=== PATIENT | female | born 1960 | race Caucasian/White ===

== ENCOUNTER 2016-11-26 10:16 | Day surgery (SDC) | payer OTHER ==
[2016-11-26] VITALS (14 sets, daily range): BP systolic 102–148; BP diastolic 64–86; PULSE 66–85; RESP 8–18; O2SAT 93–97
[~2016-11-26] VITALS: Ht 162.6 cm; Wt 58.3 kg
--- NOTE | 2016-11-26 09:58 | PCM.HPANE ---
Patient Data Surgeon Admitting Provider: Attending Provider:Rashad Mejia MD Primary Care Physician:Liliya De La Cruz MD Other Provider:Deena Garciaingham Anesthesia Reason for Visit Cystocele,Uterovag Prolapse,Rectocele,Incontinence Ht/WT & BMI Height (Feet): 5 Height (Inches): 4 Weight (Kilograms): 58.059 Body Mass Index 21.00 Allergies Coded Allergies: Penicillins (Verified Allergy, Severe, swelling mouth difficulty breathing , 11/21/16) Past Anesthesia History Anesthesia History: Denies:: Abnormal Airway, Anesthesia Reactions, Difficult Intubation, Fam Anesthesia Reaction, Fam Malignant Hypertherm, Malignant Hyperthermia Diabetes History Hx Diabetes?: No MRSA MRSA: No Medications Reported Medications Oxybutynin Chloride ER 10 Mg Tab.er.2410 Mg PO DAILY Ref 0 11/21/16 Atorvastatin (Lipitor)40 Mg Shiklw42 Mg PO DAILY Ref 0 11/21/16 Folic Acid 1 Mg Tablet1 Mg PO DAILY 30 Days 02/06/15 Bumetanide 1 Mg Tablet0.5 Mg PO BID 30 Days Ref 0 02/06/15 Pentoxifylline 400 Mg Tablet.er400 Mg PO BID 30 Days 02/06/15 Lactulose 10 Gm/15 Ml Iionptbn37 Gm PO 02/06/[address] 40 Mg Tablet.dr40 Mg PO DAILY 30 Days Ref 0 02/06/15 Potassium Chloride ER 20 Meq Tablet.er20 Meq PO DAILY 30 Days Ref 0 TAKE WITH FOOD 02/06/15 Spironolactone 100 Mg Kgyxjn062 Mg PO DAILY #30 TABLET Ref 0 02/06/15 Discontinued Reported Medications Ascorbic Acid (Vitamin C)500 Mg Capsule.er500 Mg PO 02/06/15 Thiamine HCl (Vitamin B-1)100 Mg Iqkglm048 Mg PO 02/06/15 Ferrous Sulfate (Iron)325 Mg Capsule.er325 Mg PO 02/06/15 History History of ENT Problems?: No HEENT History: Denies:: Abnormal Airway Difficult Intubation Dysphagia Hearing Problem Hx of Heart Problems?: Yes Cardiovascular History: Positive for:: Irregular Heartbeat (HX SVT (NO LONGER ON ATENOLOL)-CONVERTS W/ IV DILTIAZEM) Denies:: AICD Atrial Fibrillation Chest Pain Heart Murmur (ECHO 10/2015 EF 55-60%) Hypertension (HYPERLIPIDEMIA) Pacemaker Valvular Heart Disease Hx of Respiratory Problem?: Yes Respiratory History: Denies:: Asthma COPD Cough Hemoptysis Pneumonia (HX BRONCHIOLITIS) Tuberculosis Use of C-PAP Machine Hx Neurologic Problems?: No Neurological History: Denies:: CVA Dementia Hx of GI Problems?: Yes Gastrointestinal History: Positive for:: Cirrhosis (ALCOHOLIC CIRROHOSIS - STABLE) Gastroesphageal Reflux Hiatal Hernia Denies:: Diverticulitis (DIVERTICULOSIS) Rectal Bleeding (HX COLON POLYPS) Hx of Problems?: Yes Female Hx: Denies:: Currently (S/P BTL) Skin History: Denies:: History Skin Disorders? Pressure Ulcers Hx Musculoskeletal Problems?: No Musculoskeletal History: Denies:: Joint Replacement Hx of Psycho/Social Problems?: Yes Psycho Social History: Positive for:: Anxiety Hx Depression Hx Surgeries?: Yes (BTL) Hx Any Other Health Problems?: Yes Other History: Denies:: Cancer Endocrine Disease Hospitalization Thyroid Disease History Blood Transfusions: Denies:: Blood Transfusions Hx Diabetes: No Hx Alcohol Use: No (QUIT 2+ YRS AGO)Hx Substance Use: Yes Smoking Status: Current Every Day Smoker Heavy Tobacco Smoker Approx How Many Cigarettes/day: 1 PACK EVERY 3 DAYS-TRYING TO "CUT DOWN" Stop/Bang S-Snoring: Do You Snore Loudly: No T-Tired: feel tired, fatigued: No O-Obsered: Observed not breath: No P-Blood Pressure: treated: No B- Body Mass Index > 35 kg/m2: No A- Age over 50: Yes N- Neck Large Circumference: No G- Gender Male: No JAY Total Score: 1 JAY Risk Assessment: Low Risk, <3 Yes Risk Assessment Category Category 1A: Patient has history of documented sleep apnea, and HAS NOT received any narcotic, sedative or anesthesia administration during this stay. Category 1B: Patient has history of documented sleep apnea, and HAS received any narcotic , sedative or anesthesia administration during this stay Category 2: Patient has SUSPECTED Obstructive Sleep Apnea, and HAS received any narcotic , sedative or anesthesia administration during this stay. Category 3: Patient has SUSPECTED Obstructive Sleep Apnea and HAS NOT received narcotic, sedative or anesthesia administration during this stay. Category 4: Outpatient in Procedural Areas with known sleep apnea or who screen positive for High Risk via the STOP/BANG questionnaire. Exam Exam General Appearance: Alert HEENT/AIRWAY: MP 1 Lungs: Clear to Auscultation Heart: Exam Unremarkable Plan Impression Patient chart reviewed, patient interviewed and anesthestic plan with risks, benefits, and alternatives discussed, and informed consent obtained. ASA Physical Status: ASA1 Normal Healthy Anesthetic Plan: GA, SAB Bene/Risks/Altern/Consents: Yes HP Complete Prior to Induction: Yes Will De Los Santos MD Nov 26, 2016 09:58
[~2016-11-26 10:16] MED LIST: BUME1TAB4 PO; Clindamycin Inj 600 MG in IV Premix 1 EACH IV ONE; DEXTROSE 5% IV ONE; DEXTROSE 50% IV ONE; FOLI1TAB18 PO; GENTAMICIN IV ONE; LACT10SO27 PO; LIP40 PO; Lactated Ringer's 1,000 ML IV SCH; OXYB10TA PO; PANT40TA3 PO; PENT400T PO; POTA-62 PO; Phenazopyridine 97.5 mg Tablet PO ONE; SPIR100T3 PO; WATER IV ONE
[2016-11-26] MEDS ORDERED: EPHEDrine/NS 5 mg/mL 5 mL Syringe ONE (10:17)
[2016-11-26] MEDS ORDERED: fentaNYL-PF 50 mCg/mL 2 mL Inj ONE (10:17)
[2016-11-26] MEDS ORDERED: Ondansetron 2 mg/mL 2 mL Inj ONE (10:17)
[2016-11-26] MEDS ORDERED: Propofol 10,000 mCg/mL 20 mL Inj ONE (10:17)
[2016-11-26] MEDS ORDERED: Morphine PF 1 mg/mL 10 mL Inj ONE (10:17)
[2016-11-26] MEDS ORDERED: Dexamethasone 4 mg/mL Inj ONE (10:17)
[2016-11-26] MEDS ORDERED: Phenazopyridine 97.5 mg Tablet ONE (10:25)
[2016-11-26] MEDS ORDERED: Dexamethasone 4 mg/mL Inj IVPUSH PRN (13:20)
[2016-11-26] MEDS ORDERED: Lactated Ringer's 500 ML IV PRN (13:20)
[2016-11-26] MEDS ORDERED: Labetalol 5 mg/mL 4 mL Inj IV PRN (13:20)
[2016-11-26] MEDS ORDERED: Ondansetron 2 mg/mL 2 mL Inj IVPUSH PRN (13:20)
[2016-11-26] MEDS ORDERED: MetoCLOpramide 5 mg/mL 2 mL Inj IVPUSH PRN ×2 (13:20→16:55)
[2016-11-26] MEDS ORDERED: EPHEDrine Sulfate 50 mg/mL Inj IVPUSH PRN (13:20)
[2016-11-26] MEDS ORDERED: HYDROmorphone 1 mg/mL Inj IVPUSH PRN (13:20)
[2016-11-26] MEDS ORDERED: Atropine 0.4 mg/mL Inj IVPUSH PRN (13:20)
[2016-11-26] MEDS ORDERED: Lactated Ringer's 1,000 ML IV SCH (13:20)
[2016-11-26] MEDS ORDERED: Phenylephrine 10,000 mCg/mL Inj IVPUSH PRN (13:20)
[2016-11-26] MEDS ORDERED: Lidocaine 1%-Epi 1:100,000 20 mL Inj INFILTRATE ONE ×2 (13:35→14:24)
[2016-11-26] MEDS ORDERED: Sodium Chloride LOK Flush 10 mL Syringe XX ONE ×2 (13:35→14:24)
[2016-11-26] MEDS ORDERED: Gentamicin 40 mg/mL 2 mL Inj IRRIGATION ONE ×2 (13:37→16:09)
[2016-11-26] MEDS ORDERED: Lactated Ringer's 1,000 ML IV ONE (16:23)
--- NOTE | 2016-11-26 16:54 | PCM.ANEP1 ---
Post Anesthesia Phase 1 PACU Phase 1 Assessment Vital Signs Vital Signs Date Time Temp Pulse Resp B/P Pulse Ox O2 Delivery O2 Flow Rate FiO2 11/26/16 10:37 35.5 85 17 148/86 97 Room Air Anesthetic Administered: GA Level of Alertness: Awake, talking LU's with Equal Strength: Yes Pain: No Oxygen Delivery: Room Air Lungs: Clear to Auscultation Dermatome Level: Full Sensation Summary TEMP 36.3 121/74 SAT 94 RR12 HR101 Will De Los Santos MD Nov 26, 2016 16:54
--- NOTE | 2016-11-26 16:54 | PCM.ANEP2 ---
Post Anesthesia Evaluation ASA/CMS Post Anesthesia VS in Patient's Normal Range?: Yes Resp Stable; Airway Patent?: Yes CV Function & Hydration Stable: Yes Mental Status Recovered?: Yes Pain control Satisfactory?: Yes N/V Control Satisfactory?: Yes Will De Los Santos MD Nov 26, 2016 16:54
[2016-11-26] MEDS ORDERED: Acetaminophen IV 1,000 MG in IV Premix 1 EACH IV ONE (16:55)
[2016-11-26] MEDS ORDERED: Alum-Mag Hydrox-Simeth 30 mL Suspension PO PRN (16:55)
[2016-11-26] MEDS: fentaNYL-PF 50 mCg/mL 2 mL Inj IVPUSH PRN ×2 (17:05→17:25)
[2016-11-26] MEDS: Lactated Ringer's 1,000 ML IV SCH (17:57)
[2016-11-26] MEDS: Ondansetron 2 mg/mL 2 mL Inj IVPUSH PRN (18:13)
--- NOTE | 2016-11-26 18:56 | NUR ---
Post Op Pt arrived to [facility] rm 1014 from PACU at approx 1758. Rec'd report from Olivia EMANUEL in PACU. Pt arrived via gurney and was able to scoot herself over to the hospital bed. IV SL currently. SCDs on, albrecht patent and draining to gravity. Pt sleepy but easily awakens. Oriented to room and call light. VSS
[2016-11-26] MEDS: Pentoxifylline 400 mg ER12 Tablet PO SCH (20:30)
[2016-11-26] MEDS: Senna-Docusate 8.6-50 mg Tablet PO SCH (20:30)
--- NOTE | 2016-11-26 22:22 | PCM.SURGOP ---
Surgical Operative Report Date of Service: Nov 26, 2016 Pre Operative Diagnosis 1. Uterovaginal prolapse, incomplete N81.2 (618.2): 2. Cystocele, midline N81.11 (618.01): 3. Rectocele N81.6 (618.04): 4. Stress incontinence in female N39.3 (625.6): Post Operative Diagnosis 1. POPQ stage 2 Uterine prolapse and enterocele 2. POPQ stage 3 Cystocele and deficient pubocervical/pubovesical fascia 3. POPQ stage 2 Rectocele 4. Stress incontinence in female Procedure: 1. vaginal hysterectomy with bilateral salpingectomy, 2. anterior repair with Xenform biologic graft augmentation. 3. posterior repair 4. high uterosacral ligament vaginal vault suspension, enterocele repair 5. TVT-obturator sling and cystoscopy Surgeon and Medical Reception Specialist: Surgeon: Rashad Mejia MD Assistants: Crow Arredondo MD Indication for Procedure The patient has had a history of prolapse. Prolapse symptoms include: a feeling of a lump in the vagina, protrusion of tissue outside the vagina. The patient has had urinary incontinence. The incontinence is mixed in nature. The urgency and stress components are equally bothersome. Urodynamics confirmed stress incontinence. She is a candidate for surgical prolapse management in the form of:. vaginal hysterectomy. with bilateral salpingectomy, anterior repair with biologic graft augmentation. posterior repair with possible biologic graft augmentation, high uterosacral ligament vaginal vault suspension, enterocele repair and TVT- obturator sling. I discussed the importance of smoking cessation pre and postop. The patient signed the consent form. She agreed with the risks, benefits, and alternatives to surgery. The risks included but not limited to recurrence or persistence of prolapse, recurrence of persistence of incontinence, development of voiding dysfunction, development of urinary urgency, urgency incontinence, frequency, and need for intermittent self-catheterization or prolonged indwelling catheterization, injury to other organs including bladder, bowel, nerves or blood vessels. Need for blood transfusion, need for temporary colostomy or urinary stenting. Development of vaginal scarring, dyspareunia, defecatory dysfunction, recurring pain, hematoma formation, urinary tract infection, cellulitis, necrotizing fascitis, and medical risks including myocardial infarction, stroke or VTE. She also understood the FDA warnings associated with the use of vaginal mesh (dysparunia, vaginal erosion, erosion into bowel/bladder/urethra, requiring further surgery to correct these complications). The patient understood the risks and benefits and consented to surgery. Findings: see dictation Procedure Details SURGICAL TECHNIQUE: The patient was brought to the operating room. She was placed under general anesthesia. She was positioned with legs in Yellowfin stirrups. She was prepped and draped in the normal fashion for vaginal surgery. She was given a dose of IV clindamycin and gentamicin intraoperatively. She received 200 mg pyridium orally 30 min prior to surgery. 1. Vaginal Hysterectomy and bilateral salpingectomy: Lidocaine 0.5% with 1:50,000 of epinephrine was infiltrated pericervically. A pericervical incision was made with cautery. Anteriorly, the bladder was sharply dissected off the cervix. Posteriorly, the cul de sac was entered with Sharp dissection. The bowels were packed with a mini-laparotomy sponge. The uterosacral ligaments were bilaterally clamped, divided and then tied in a transfixion fashion with 0- vicryl suture. Anteriorly, the Uterovesical peritoneum was entered with sharp dissection and the bladder was retracted upward with a right-angle retractor. The uterine vessels were then coagulated, and ligated using the Ligasure Impact System. The uterine body was delivered posteriorly. The uterus contained several small fibroids. The utero-ovarian ligaments were clamped bilaterally, coagulated, ligatated and then tied using 0-Vicryl suture. The tubes appeared normal. Incidental bilateral paratubal cysts were noted. Both ovaries were normal and noted to have small simple cysts. Cautery was used to cauterize the paratubal cysts. She agreed to have a bilateral salpingectomy. The tubes were clamped at their base, coagulated with Ligasure and excised. The base was tied with 0-vicryl suture. The uterus/cervix, and tubes were sent to pathology. It was noted that the pedicles were hemostatic. Cautery and Ligasure was used to achieve hemostasis along the cuff. 2. High uterosacral ligament vaginal vault suspension, cystoscopy and enterocele repair: Mini laparotomy sponges were packed to retract the bowel upwards. A pair of Allis clamps were placed along the intraperitoneal portions of the vagina at the 5 and 7 o'clock positions. Tension along these Allis clamps allowed for identification of the uterosacral ligaments bilaterally. A pair of 0 Vicryl sutures were passed around the uterosacral ligaments of the level of the ischial spine bilaterally, totalling 4. Cystoscopy was performed. Tension was applied along the vault sutures and brisk spillage of pyridium-stained urine was noted briskly effluxing from both ureteric orifices. Next two 3-0 Prolene sutures were placed transversely through the cul-de-sac peritoneum. This was Performed while using a gloved finger in the rectum as to avoid penetrating the underlying rectal mucosa. Tying these sutures obliterated the enterocele. 3. Anterior colporrhaphy with Xenform graft augmentation: Lidocaine 0.5% with 1 /02772 epinephrine was infiltrated along the anterior vaginal wall mucosa. A midline vertical incision was made through the anterior vaginal wall. The vaginal wall was dissected off the underlying pubocervical and pubovesical fascia. The dissection was extended laterally beyond the ischial pubic rami. It was noted that the pubocervical and pubovesical fascial tissues were deficient and thin. The cystocele was plicated in 2 layers, the first layer with 2-0 Vicryl suture in interrupted fashion, the second layer with 2-0 Tycron suture in an interrupted fashion. A trapezoidal piece of Xenform graft was then incorporated atop the plicated area far laterally. The graft was secured to the obturator internus membrane. At the level of the bladder neck, an upside down triangular piece of graft was excised so that there was no over-support created along the level of the bladder neck. Apically , the graft was passed through the proximal uterosacral ligament sutures. A mild amount of excess anterior vaginal mucosa was excised. The vault suspension sutures were then passed through the planned apex of the vagina. Two were placed through the anterior apex and the other two, through the posterior apex. The vagina was then reapproximated using 3-0 Vicryl suture in a running-locked fashion. The high uterosacral ligament vaginal vault suspension sutures were tied and this elevated the apex of the vagina high up into the hollow of the sacrum. 4. Posterior colpoperineorrhaphy: Lidocaine 0.5% with 1:50,000 of epinephrine was infiltrated along the perineum and posterior vaginal wall mucosa. A thin wedge of perineum was excised with a scalpel and a midline vertical incision was made through the posterior vaginal wall. The vaginal mucosa was dissected off the underlying rectovaginal tissues. It was noted the fascial tissues were sufficient. The rectocele was plicated in two layers using 2- 0 Vicryl suture in an interrupted fashion. A mild amount of excess posterior vaginal mucosa was excised. The perineum was reapproximated using 2-0 Vicryl suture in an interrupted fashion. The skin was reapproximated using 3-0 Vicryl suture in a subcuticular fashion. 5. TVT-Obturator sling and cystoscopy. Lidocaine 0.5% with 1/67540 epinephrine was infiltrated along the anterior vaginal wall mucosa at the level of the mid urethra. Midline vertical incision was made at that level, 2 periurethral tunnels were created with Metzenbaum scissors. Two stab incisions were created at the skin at the groin at a level 2 cm superior to the external urethral meatus and 2 cm lateral to the fold created between the vulva and thigh. Albrecht catheter had already been inserted. A butterfly guide was inserted into the right periurethral tunnel, a curved helical needle was inserted on top of the guide and rotated out to the ipsilateral skin incision. The same procedure was performed on the contralateral side. Next the Albrecht catheter was removed. Cystoscopy was performed. There was no inadvertent penetration of the sling through the vagina, urethra or bladder. In addition, the ureteric orifices were noted bilaterally to be functional by the brisk spillage of pyridium-stained turine. The bladder appeared normal. The plastic sheaths of the sling were removed. The bladder was filled with additional sterile water (to a total bladder volume of 300 ml). Using the Crede maneuver, sling tension was appropriately adjusted. Also a large right angle clamp was allowed to easily pass behind the sling so that the sling was placed in a tension-free manner. The sling ends were cut at the level of the skin. The skin was reapproximated using Mastisol, Steri-Strips and band-aids. The vagina was reapproximated using 3-0 Vicryl suture in a running fashion Bilateral relaxing incisions were made along the 3 and 9 oclock positions in the vagina. EUA allowed for the insertion of 3 gloved fingers in the vagina. The vagina was packed with K-Y lubricated packing. An indwelling 16 F albrecht catheter was connected to straight drainage. The patient's hips were periodically deflexed during the case. There were no complications. The EBL was 150 ml. All sponges and instruments were accounted for. She was taken to the recovery room in stable condition. Complications There were no periprocedural complications identified. Surgical Specimen Removed: Yes Specimen sent to Pathology: Yes Surgical Specimen description: uterus/cervix and tubes x 2 Anesthetic Plan: GA, SAB Grafts, Implants: Grafts-See Implant Record, Implants-See Implant Record Output, Estimated Blood Loss: 150 (ml) Blood Administration during ram: No Drains: None Catheters: Urethral 2 Way Albrecht Post Operative Plan overnight observation at outpatient in bed as she requires a voiding trial in am copies to: Crow Arredondo MD; Casa Arzola MD; Rashad Mejia MD; Liliya De La Cruz MD, William Andre Z MD Nov 26, 2016 22:22
[2016-11-27] MEDS: Lactated Ringer's 1,000 ML IV SCH ×2 (01:13→10:57)
[2016-11-27] MEDS: oxyCODONE-Acetamin 5-325 mg Tablet PO PRN ×2 (01:41→09:06)
--- NOTE | 2016-11-27 02:18 | NUR ---
Activity/Pain Patient dangling on side of bed and able to stand up with one person assist. Complaint of mild increase in pain, rating pelvic/vaginal discomfort about a 5/10 and received two Percocet with effective results. Noted to be resting with eyes closed upon reassessment.
[2016-11-27 06:15] VITALS: BP 104/61; PULSE 86; RESP 16; O2SAT 96
[2016-11-27] MEDS ORDERED: Pantoprazole 40 mg ER24 Tablet PO SCH (06:30)
[2016-11-27 06:55] LABS: BASOPHILS % (AUTO) 0.1 % (0-3); EOSINOPHILS % (AUTO) 0 % (0-5); MONOCYTES % (AUTO) 4.8 % (4-12); Mean Corpuscular Hemoglobin 31.8 pg (27.0-35.0); Mean Corpuscular Volume 91.9 fL (81-100); NEUTROPHILS % (AUTO) 86.7 % (40-74); Platelet Count 233 bil/L (150-400)
[2016-11-27 07:48] VITALS: BP 118/73; PULSE 73; RESP 16; O2SAT 95
[2016-11-27] MEDS ORDERED: Heparin 5,000 Unit/mL Inj SUBQ SCH (08:30)
[2016-11-27] MEDS ORDERED: Lactulose 20 Gm/30 mL 30 mL Syrup PO SCH (08:30)
[2016-11-27] MEDS ORDERED: Potassium Chloride 20 mEq SR Tablet PO SCH (08:30)
[2016-11-27] MEDS: Senna-Docusate 8.6-50 mg Tablet PO SCH (09:46)
[2016-11-27] MEDS: Pentoxifylline 400 mg ER12 Tablet PO SCH (09:50)
[2016-11-27] MEDS: Ondansetron 2 mg/mL 2 mL Inj IVPUSH PRN (10:27)
--- NOTE | 2016-11-27 11:31 | PCM.DIGYN ---
Surgical Discharge Instruction Dates of Hospitalization Date of Hospital Admission 11/26/16 outpatient observation in bed overnight Providers Admitting Physician: Primary Care Physician: Liliya De La Cruz MD Attending Physician: Rashad Mejia MD Diagnosis at Time of Discharge Diagnosis at time of discharge 1. POPQ stage 2 Uterine prolapse and enterocele 2. POPQ stage 3 Cystocele and deficient pubocervical/pubovesical fascia 3. POPQ stage 2 Rectocele 4. Stress incontinence in female 5. iron-deficiency anemia secondary to acute blood loss (requiring oral iron) Post-operative diagnosis 1. POPQ stage 2 Uterine prolapse and enterocele 2. POPQ stage 3 Cystocele and deficient pubocervical/pubovesical fascia 3. POPQ stage 2 Rectocele 4. Stress incontinence in female Problems: Diet Discharge Diet: No restrictions Activity Discharge Activity-General: Restrict lifting to no greater than (10 lb for 6 wk ) Dressing and Incisional Care Dressing Care: Allow Steri Stripes to fall off Hygiene: May shower Additional Instructions Discharge Instructions START IRON TABS once bowel movements are established Follow Up Plan Follow-up appointment: Weeks (2; also f/u in [address] Mejia's MA if home with a albrecht) Call your provider for: Fever, Chills, Shortness of breath, Vomitting, Heavy vaginal bleeding, Wound redness, Increasing pain Rashad Mejia MD Nov 27, 2016 11:31
--- NOTE | 2016-11-27 11:44 | PCM.PNSURG ---
Subjective Date of Service: Nov 27, 2016 Date of Service: Nov 27, 2016 Visit Information: Reason for Visit Cystocele,Uterovag Prolapse,Rectocele,Incontinence Surgery/Surgery Date Post-Op Day # 1 Subjective: AVSS OR explained starting to ambulate pain controlled with analgesics tolerating food Pain Management: PO Objective Vital Sign- Last 8 Hours Date Time Temp Pulse Resp B/P Pulse Ox O2 Delivery O2 Flow Rate FiO2 11/27/16 07:48 Supplement Oxygen 11/27/16 07:48 36.6 73 16 118/73 95 Room Air 11/27/16 06:15 36.3 86 16 104/61 96 Room Air Intake and Output- Last 8 Hour 11/27/16 Cumulative From/Thru 07:00 11/21/16 16:42 - 11/27/16 06:10 Intake Total 2318 ml 4419 ml Output Total 650 ml 1270 ml Balance 1668 ml 3149 ml Intake Oral 800 ml 800 ml IV Total 1518 ml 3619 ml Output Urine Total 650 ml 970 ml Estimated Blood Loss 300 ml # Bowel Movements 0 0 General: Alert, Oriented X3, Cooperative Lungs: Clear to Auscultation Abdomen: Benign Catheters: Urethral 2 Way Aguirre Result Diagram: 11/27/16 0610 11/27/16 0610 Assessment & Plan Impression POD# 1 stable iron deficiency anemia secondary to acute blood loss - require iron tabs Problems: Plan Voiding trial repeat H&H at 11 am start iron once BM's are established d/c home today once stable Resuscitation Status: CPR: Attempt Resuscitation copies to: Rashad Mejia MD, William Andre Z MD Nov 27, 2016 11:44
[2016-11-27 11:45] VITALS: BP 118/68; PULSE 76; O2SAT 95
[2016-11-27 11:47] VITALS: BP 120/71; PULSE 79
[2016-11-27 11:51] VITALS: BP 116/73; PULSE 87
--- NOTE | 2016-11-27 13:00 | NUR ---
VOIDING TRIAL Vaginal packing d/cd. Sterile water 300 ml was instilled via her IFC. Patient was able to void 50 ml of bloody UO after 30 minutes. Per orders IFC reinserted. Patient was instructed RE: IFC care and she verbalized understanding.
--- NOTE | 2016-11-27 15:00 | NUR ---
POST-OP PROGRESS/MD NOTIFICATION Percocet 2 tabs PO has been adequate for pain control. Patient vomited X 1 when we first attempted to ambulate her this morning. Zofran IV administered. No further complaints of nausea voiced. Patient refused lunch. Tolerating liquids PO. Denies SOB. She has been able to ambulate in the room. Bandaid dressing in her groin is CDI. She has minimal output noted in her peripad. IFC intact and draining at this time. H/H results are up. Dr. Mejia made aware RE: Patients progress and discharge orders received.
--- NOTE | 2016-11-27 15:50 | NUR ---
DISCHARGE Patient denies pain, nausea/SOB. Ambulating independently in the room. IFC is intact and draining to sylvester colored UO. Minimal output noted in her peripad. Bandaid dressing is CDI. IFC instructions was reiterated and demonstration done again. Patient verbalized understanding but did not want to do a return demonstration at this time. IV saline lock d/cd. Discharge instructions, care notes and prescription was given to the patient and she verbalized understanding. Discharged to home with her daughter in law and all her personal belongings. (Copy of D/C is in the chart).
--- NOTE | 2016-12-03 11:10 | PATH ---
SURGICAL PATHOLOGY Attending Physician:Rashad Mejia, CASE STATUS: Signed Out PATIENT NAME: RAMONE DAMICO PID: [id number] : 1960 DATE COLLECTED:11/26/2016 00:00 SPECIMEN: 1: Uterus +/- tubes/ovaries, except neoplastic, prolapse 2: Fallopian Tube, Biopsy 3: Vagina, Biopsy CLINICAL HISTORY: UTEROVAGINAL PROLAPSE 1). UTERUS, RIGHT FALLOPIAN TUBE 2.). LEFT FALLOPIAN TUBE 3). PELVIC SIDE WALL CYST FINAL DIAGNOSIS: 1. Uterus and Right Fallopian Tube: Intramural leiomyomas. Adenomyosis. Atrophic endometrium, no evidence of malignancy or hyperplasia. Cervix with no evidence of malignancy or dysplasia. Fallopian tube with no evidence of malignancy. 2. Left Fallopian Tube: Hydatid cyst of Morgagni. No evidence of malignancy. 3. Pelvic Sidewall Cyst: Calcified fibrotic nodule. No evidence of malignancy. ICD10 D25.9; N81.4 GROSS DESCRIPTION: The specimens are received in formalin, labeled with the patient's name, and sublabeled as the following: (1) uterus, right fallopian tube; (2) left fallopian tube; (3) pelvic sidewall cyst. (1) The specimen consists of a uterus (60 g, 3.5 cm AP, 7.8 cm SI, 4.0 cm ML) and a detached fimbriated fallopian tube (length-4.0 cm, diameter-0.5 cm). The cervix (1.7 cm AP, 2.3 cm SI) has a vaginal cuff (up to 1.7 cm a depth), a transverse os and patent endocervical canal. The endometrium (average thickness-0.1 cm) is sanchez-pink smooth and flat. The myometrium (thickness-1.5 cm) is sanchez and contains multiple solid firm white whorled well-circumscribed nodules (0.3 x 0.2 x 0.2 cm-2.2 x 2.2 x 1.7 cm). The serosa is sanchez smooth and shiny. The fallopian tube has sanchez smooth shiny serosa and a sanchez unremarkable lumen. Section code: (1A) anterior cervix; (1B-1C) posterior cervix, bisected and submitted SI; (1D-1F) anterior endomyometrium; (1G-1I) posterior endomyometrium; (1J) fallopian tube, serially sectioned, guest relations representative; (1K) fimbria, bivalved, entirely submitted. (2) The specimen consists of a fimbriated fallopian tube (length-3.1 cm, diameter-0.5 cm). The serosa is sanchez-pink smooth and shiny. The lumen is sanchez and unremarkable. Section code: (2A) fallopian tube, saline section; (2B) fimbria, bivalved. Specimen entirely submitted. (3) The specimen consists of a pale yellow solid hard round nodule (0.7 cm). The nodule is not easily cut with a scalpel. The cut surface is sanchez-white and chalky. Section code: (3A) nodule, bisected. The specimen entirely submitted. Note: The nodule has been decalcified. 11/27/16 ICD-9 CODES: CPT CODES: 1: 71177 2: 65204 3: 06380, 15488 Electronically Signed Out Bhavin Holloway MD [facility] [address], [place] [address] Technical component performed at [facility], [facility] [address], [place], [address]
== END 2016-11-27 15:48 | disposition home or self-care (01) ==
LOC: SAS 10:16 → OSC 17:37 → SAS 11-27 15:48
PROVIDERS: ATTEND Obstetrics & Gynecology
DX: N81.2 Incomplete uterovaginal prolapse (principal); N81.6 Rectocele; N39.46 Mixed incontinence; R39.198 Other difficulties with micturition; K21.9 Gastro-esophageal reflux disease without esophagitis; K44.9 Diaphragmatic hernia without obstruction or gangrene; K70.30 Alcoholic cirrhosis of liver without ascites; F41.9 Anxiety disorder, unspecified; F32.9 Major depressive disorder, single episode, unspecified; F17.210 Nicotine dependence, cigarettes, uncomplicated; F10.21 Alcohol dependence, in remission
CPT/HCPCS: 36415; 57265; 57267; 57283; 57288; 58262; 80048; 85014; 85018; 85025; 86850; 96374; C1763; C1771; J0131; J1100; J1580; J2250; J2274; J2405; J2765; J3010; J7120